=== PATIENT | male | born 1960 | race African-American/Black ===

== ENCOUNTER 2017-12-04 00:35 | Emergency (ER) | payer SELFPAY ==
[~2017-12-04] VITALS: Ht 175.3 cm; Wt 98.0 kg
[2017-12-04] MEDS ORDERED: SODIUM CHLORIDE 0.9% 1,000 ML IV ONE (01:08)
[2017-12-04 01:37] LABS: BASOPHILS % 1.4 % (0.0-2.0); EOSINOPHILS % 1.6 % (0.0-5.0); HEMATOCRIT. 40.3 % (42.0-52.0); LYMPHOCYTES % 39.9 % (20.0-50.0); MEAN CORPUSCULAR HEMOGLOBIN 32.2 pg (28.0-32.0); MEAN CORPUSCULAR VOLUME 93.2 fL (80.0-94.0); MONOCYTES % 14.3 % (2.0-8.0); NEUTROPHILS % 42.8 % (40.0-76.0); PLATELET 205 x1000/uL (130-400); RED BLOOD CELL COUNT 4.33 mill/uL (4.7-6.1)
[2017-12-04 01:44] LABS: CHLORIDE 96 mEq/L (98-107); INR 1.1; PROTHROMBIN TIME 11.1 sec (9.1-11.1)
[2017-12-04 01:48] LABS: ETHANOL BLOOD 284 mg/dL
[2017-12-04] MEDS ORDERED: BACITRACIN ZINC OINT UDPKT TOP ONE (03:00)
[2017-12-04] MEDS ORDERED: LIDOCAINE HCL/PF 1% 10 MG/ML 5ML VIAL IJ ONE (03:00)
[2017-12-04 04:15] VITALS: BP 121/73
[2017-12-04] MEDS ORDERED: POTASSIUM CHLORIDE 20MEQ TABLET SR PO ONE (04:45)
[2017-12-04 05:15] LABS: CLARITY URINE CLEAR (CLEAR); COLOR URINE YELLOW (YELLOW); KETONES URINE NEGATIVE (NEGATIVE); LEUKOCYTE ESTERASE URINE NEGATIVE (NEGATIVE); NITRITE URINE NEGATIVE (NEGATIVE); OCCULT BLOOD URINE NEGATIVE (NEGATIVE); PROTEIN URINE NEGATIVE (NEGATIVE); SPECIFIC GRAVITY URINE 1.003 (1.005-1.030); UROBILINOGEN URINE 0.2 E.U./dL (0.2-1.0)
[2017-12-04 06:04] LABS: *AMPHETAMINES SCREEN URINE NEGATIVE (NEGATIVE); *BARBITURATES SCREEN URINE NEGATIVE (NEGATIVE); *BENZODIAZEPINES SCREEN URINE NEGATIVE (NEGATIVE); *COCAINE SCREEN URINE NEGATIVE (NEGATIVE)
[2017-12-04 06:05] LABS: CANNABINOID URINE SCREEN NEGATIVE (NEGATIVE); METHADONE URINE SCREEN NEGATIVE (NEGATIVE); OPIATES URINE SCREEN NEGATIVE (NEGATIVE); PHENCYCLIDINE URINE SCREEN NEGATIVE (NEGATIVE)
== END 2017-12-04 04:54 | disposition home or self-care (01) ==
LOC: ER 00:35
DX: S01.01XA Laceration without foreign body of scalp, initial encounter (principal); F10.229 Alcohol dependence with intoxication, unspecified; W18.39XA Other fall on same level, initial encounter; Y93.89 Activity, other specified; Y92.89 Other specified places as the place of occurrence of the external cause; Y99.8 Other external cause status; Y90.8 Blood alcohol level of 240 mg/100 ml or more
CPT/HCPCS: 12002; 36415; 70450; 72125; 80053; 80305; 80307; 80329; 81003; 85025; 85610; 99285; G0482; J3490; J7030; X7700; Z7610